=== PATIENT | female | born 1945 | race Hispanic/Latino ===

== ENCOUNTER → 2017-10-28 | Outpatient (CLI) | payer MEDICARE ==
[~2017-10-28] MED LIST: REGADENOSON 0.4 MG/5 ML SYR IV ONE
--- NOTE | 2017-10-28 16:11 | Cardiology Report ---
DATE OF STUDY: October 28, 2017 LEXISCAN NUCLEAR STRESS TEST INDICATION: Chest pain. TECHNIQUE: The patient was given 10.7 millicuries of Myoview. Resting images were obtained in the horizontal long axis, vertical long axis and short axis. The patient was moved over to the EKG machine and hooked up to the EKG. Lexiscan was infused over 15 seconds. Immediately after Lexiscan infusion the patient was given 27 millicuries of Myoview. Stress images were obtained 30 minutes after completion of Lexiscan infusion. Stress images were obtained in the horizontal long axis, vertical long axis and short axis. RESULTS: 1. The resting EKG demonstrated normal sinus rhythm with nonspecific ST and T wave changes. 2. There were no EKG changes and no chest pain during Lexiscan infusion. 3. There was normal perfusion to all segments of the myocardium on both stress and rest. 4. There was normal left ventricular size and function with an ejection fraction of 71%. CONCLUSION: Normal Lexiscan nuclear stress test with no evidence of myocardial ischemia. There is normal left ventricular size and function with an ejection fraction of 71%. Job#: [id number]
== END ==
LOC: NM 10:08
PROVIDERS: ATTEND Internal Medicine Cardiovascular Disease
DX: R07.2 Precordial pain (principal)
CPT/HCPCS: 36415; 78452; 82948; 93017; A9502

== ENCOUNTER → 2018-01-07 | Day surgery (SDC) | payer MEDICARE ==
--- NOTE | 2017-12-23 15:11 | Diagnostic Imaging Report ---
PROCEDURE:CHEST 2 VIEWS TECHNIQUE:PA and lateral chest INDICATION:Preoperative evaluation for right shoulder surgery COMPARISON:None. FINDINGS: The lungs are clear and symmetrically inflated. No pleural effusions. Mild cardiomegaly with normal central vasculature. Intact skeleton with multilevel degenerative disc disease. Cholecystectomy clips. CONCLUSION: No acute abnormality. Mild cardiomegaly. Dictated by: Nate Alejandra M.D. on 12/23/2017 at 15:13 Electronically approved by: Nate Alejandra M.D. on 12/23/2017 at 15:13
[2017-12-23 15:20] LABS: BASOPHILS % 0.4 % (0.0-1.0); EOSINOPHILS # (AUTO) 0.3 (0.0-0.4); EOSINOPHILS % 4.1 % (0.0-6.0); HEMATOCRIT 39.9 % (34.2-44.1); HEMOGLOBIN 13.7 g/dL (12.0-16.0); LYMPHOCYTES # (AUTO) 1.8 (1.0-3.2); LYMPHOCYTES % 24.9 % (18.0-39.1); MEAN CORPUSCULAR HEMOGLOBIN 29.8 pg (28-32); MEAN CORPUSCULAR HGB CONC 34.3 g/dL (31-35); MEAN CORPUSCULAR VOLUME 86.7 fL (81-99); MONOCYTES # (AUTO) 0.5 (0.2-0.8); MONOCYTES % 6.6 % (4.4-11.3); NEUTROPHILS # (AUTO) 4.6 (2.1-6.9); NEUTROPHILS % 63.5 % (38.7-80.0); PLATELET COUNT 226 x10e3/uL (140-360); RED CELL DISTRIBUTION WIDTH 12.3 % (11.7-14.4)
[2017-12-23 15:36] LABS: ANION GAP 13.8 mmol/L (8-16); BLOOD UREA NITROGEN 13 mg/dL (7-26); BUN/CREATININE RATIO 17 (6-25); CALCIUM 9.5 mg/dL (8.4-10.2); CARBON DIOXIDE 24 mmol/L (22-29); CHLORIDE 105 mmol/L (98-107); CREATININE, SERUM 0.77 mg/dL (0.57-1.11); EST GLOMERULAR FILTRATION RATE > 60 ML/MIN (60-); GLUCOSE 121 mg/dL (74-118); POTASSIUM 3.8 mmol/L (3.5-5.1); SODIUM 139 mmol/L (136-145)
[~2018-01-07] MED LIST changes: +ACETAMINOPHEN 1000 MG/100 ML 100 ML IV ONE; +AMLODIPINE BESYL5 MG PO; +CALCIUM500 MG PO; +CEFAZOLIN SOD 2 GM/D5W 50ML 50 ML IV ONE; +DEXAMETHASONE SOD PHOS INJ 4 MG/ML VIAL ONE; +FENTANYL CITRATE/PF 100MCG/2 ML INJ ONE; +JANUVIA100 MG PO; +KETOROLAC TROMETHAMINE 30 MG/ML VIAL ONE; +LEVOTHYROXINE50 MCG PO; +LIDOCAINE 2%/ EPINEPHRINE 20ML MDV ONE; +LIDOCAINE HCL 2% LOCAL INJ 5 ML SDV VIAL INJ ONE; +MIDAZOLAM HCL 2 MG/2 ML VIAL ONE; +OMEGA 3 FISH O1 EACH PO; +ONDANSETRON HCL INJ 2 MG/ML VIAL ONE; +PROPOFOL IV EMULSION 10 MG/ML 20 ML VIAL ONE; -REGADENOSON 0.4 MG/5 ML SYR IV ONE; +ROPIVACAINE 0.5% 5 MG/ML 30 ML SDV ONE; +SEVOFLURANE INHAL SOLN 250 ML PEN BTL ONE; +VITAMIN D1000 UNI1 PO
--- OUTSIDE RECORDS SUMMARY | 2018-01-07 07:10 | XMS REPORT ---
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 Allergies, Adverse Reactions, Alerts This patient has no known allergies or adverse reactions. Medications This patient has no known medications. Results Test Description Test Time Test Comments Text Results Atomic Results Result Comments CHEST 2 VIEWS [place] [id number] Patient Name: JAZIEL MARIE MR #: [id number] : 1945 Age/Sex: 72/F Req #: [id number] [facility] Physician: Ordered by: CLEMENT MATOS MD Report #: [id number] Location: OR Room/Bed: Procedure: [id number] DX/CHEST 2 VIEWS Exam Date: 12/23/17 Exam Time : 1450 REPORT STATUS: Signed PROCEDURE: CHEST 2 VIEWS TECHNIQUE: PA and lateral chest INDICATION: Preoperative evaluation for right shoulder surgery COMPARISON: None. FINDINGS: The lungs are clear and symmetrically inflated. No pleural effusions. Mild cardiomegaly with normal central vasculature. Intact skeleton with multilevel degenerative disc disease. Cholecystectomy clips. CONCLUSION: No acute abnormality. Mild cardiomegaly. Dictated by: Sandip Alejandra M.D. on 2017 at 15:13 Electronically approved by: Sandip Alejandra M.D. on at 15:13 Dictated By: SANDIP ALEJANDRA MD 12 Transcribed By: DAYNA on 12/23/171512 COPY TO: CLEMENT MATOS MD Stress Test - Treadmill ONLY [place] [address] Patient Name : JAZIEL MARIE MR #: [id number] : 1945 Age/Sex: 72/F Adm Physician : GREGORY ANGELO MD Admit Date : Location : [place] Room/Bed : REPORT: Cardiology Report DATE OF STUDY: October 28, 2017 LEXISCAN NUCLEAR STRESS TEST INDICATION: Chest pain. TECHNIQUE: The patient was given 10.7 millicuries of Myoview. Resting images were obtained in the horizontal long axis, vertical long axis and short axis. The patient was moved over to the EKG machine and hooked up to the EKG. Lexiscan was infused over 15 seconds. Immediately after Lexiscan infusion the patient was given 27 millicuries of Myoview. Stress images were obtained 30 minutes after completion of Lexiscan infusion. Stress images were obtained in the horizontal long axis, vertical long axis and short axis. RESULTS: 1. The resting EKG demonstrated normal sinus rhythm with nonspecific ST and T wave changes. 2. There were no EKG changes and no chest pain during Lexiscan infusion. 3. There was normal perfusion to all segments of the myocardium on both stress and rest. 4. There was normal left ventricular size and function with an ejection fraction of 71%. CONCLUSION: Normal Lexiscan nuclear stress test with no evidence of myocardial ischemia. There is normal left ventricular size and function with an ejection fraction of 71%. Job#: [id number] Signature Date Dictated By: GREGORY ANGELO MD Transcribed By: ANDREW on 10/28/17 <Electronically signed by GREGORY ANGELO MD><<Signature on File >>10/29/17 0655 COPY TO:
--- NOTE | 2018-01-12 13:10 | Operative Report ---
DATE OF PROCEDURE: January 07, 2018 PREOPERATIVE DIAGNOSIS: 1. Right shoulder rotator cuff tear. 2. Right shoulder acromioclavicular joint arthritis. POSTOPERATIVE DIAGNOSIS: 1. Right shoulder synovitis. 2. Right shoulder partial biceps tendon tear. 3. Right shoulder rotator cuff tear. 4. Right shoulder acromioclavicular joint arthrosis. PROCEDURE PERFORMED: The patient underwent a 1. Right shoulder examination under anesthesia. 2. Right shoulder arthroscopy. 3. Right shoulder arthroscopic debridement of synovitis. 4. Right shoulder arthroscopic debridement of a partial biceps tendon tear. 5. Right shoulder arthroscopic rotator cuff reconstruction. 6. Right shoulder arthroscopic subacromial decompression with acromioplasty. 7. Right shoulder arthroscopic distal clavicle resection. 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 ANESTHESIA: General endotracheal intubation anesthesia. IV FLUIDS: As per the anesthesia record. DESCRIPTION OF PROCEDURE: Ms. Mccall was taken to the operating room and placed in the supine position on the operating table. Following induction of general anesthesia as well as endotracheal intubation, the patient's right upper extremity was examined under anesthesia. She was found to have a normal-appearing shoulder. She had full passive range of motion of the shoulder joint without evidence of instability. The patient's upper extremity was prepped and draped in standard surgical fashion. Standard posterolateral and anterior portals were created without difficulty. The scope was placed within the shoulder joint atraumatically. There was no significant evidence of chondromalacia of the glenohumeral surfaces. The biceps was found contained within the shoulder joint, but the biceps tendon, the long head of the biceps, had a partial thickness tearing. There were no loose bodies in the shoulder joint. Examination of the rotator cuff tissue demonstrated a tear of the anterior leading edge of the rotator cuff at the level of the rotator interval. There was also synovitis within the shoulder joint. A shaver was placed within the shoulder, and the synovitis was debrided. The biceps tendon injury was also debrided at this time. A probe was placed within the shoulder joint, and the long head of the biceps was drawn into the shoulder joint and there was no further damage. The shaver was used to debride the torn portion of the rotator cuff. An elevator was used to elevate the partial thickness tearing of the rotator cuff. An anterolateral portal was created through an outside-in technique, and a shaver was then used both within the shoulder and outside and then through the subacromial space to debride the insertion site for the rotator cuff tissue to a bleeding bony bed. Once this was achieved, the shoulder was deflated of its sterile normal saline. The scope was placed in subacromial space, and significant bursal inflammation was encountered. A lateral portal was created with an outside-in technique, and a bursectomy was performed. The rotator cuff injury was easily identified. A single triple-loaded suture anchor was inserted into the greater tuberosity of the humerus, and the suture arms from the anchor were then woven through the rotator cuff tissue, repairing the rotator cuff tear and closing the rotator cuff interval. The patient was found to have a markedly downward and laterally sloping acromion. An aggressive acromioplasty was performed. The coracoacromial ligament was also resected at this time. The anterior portal was then transferred to the subacromial space at the level of the AC joint, and a 1 cm section of the distal clavicle was resected. The shoulder was then deflated of its sterile normal saline. The portal sites were closed. Sterile dressings were applied, and the patient was provided a sterile dressing and a shoulder immobilizer. She was awakened and taken to the postanesthesia care unit in stable condition. Job#: [id number] ALEIDA
== END | disposition home or self-care (01) ==
LOC: OR 07:09
PROVIDERS: ATTEND Specialist
DX: M75.121 Complete rotator cuff tear or rupture of right shoulder, not specified as traumatic (principal); M19.011 Primary osteoarthritis, right shoulder; M65.811 Other synovitis and tenosynovitis, right shoulder; S46.211A Strain of muscle, fascia and tendon of other parts of biceps, right arm, initial encounter; E11.9 Type 2 diabetes mellitus without complications; I10 Essential (primary) hypertension; E07.9 Disorder of thyroid, unspecified; Z88.2 Allergy status to sulfonamides; X58.XXXA Exposure to other specified factors, initial encounter; Z01.810 Encounter for preprocedural cardiovascular examination; Z01.812 Encounter for preprocedural laboratory examination; Z01.818 Encounter for other preprocedural examination; Z79.84 Long term (current) use of oral hypoglycemic drugs
CPT/HCPCS: 29824; 29826; 29827; 36415 ×2; 71046; 80048; 82948; 85025; 93005; J1100; J1885; J2001 ×2; J2250; J2405; J2795